=== PATIENT | male | born 1955 | race Caucasian/White ===

== ENCOUNTER → 2023-02-08 14:08 | Outpatient (CLI) | payer MEDICARE, SELFPAY ==
--- NOTE | 2023-02-09 12:45 | DI.NM.S_ITS ---
DATE OF SERVICE: 02/09/2023 Exercise perfusion study INDICATIONS: Exertional chest pain, coronary artery calcification, hypertension and hyperlipidemia. RADIOPHARMACEUTICAL: 27.4 millicurie technetium-99m Myoview IV was injected at rest and 25.5 millicurie technetium-99m Myoview IV was injected at rest. CARDIAC STRESS: The patient underwent exercise perfusion study under the supervision of an attending staff using standard Freddie protocol. The patient walked on Freddie protocol for 8 minutes and 38 seconds, achieved target heart rate 100 percent with maximum heart rate 155 beats per minute. Flat blood pressure response. Maximum blood pressure 132/80. Achieved 10.1 METS of workload. CHAD -10%. In 2 minutes of exercise, patient developed chest discomfort, which has anginal quality. On a scale of 1 to 10, 5 in intensity. It lasted up to 19 minutes in recovery. Baseline rhythm was sinus. During stress, the patient has intermittent PVCs, including short run of nonsustained ventricular tachycardia up to 3 minutes and some ventricular couplets. No sustained ventricular tachycardia. In recovery, the patient developed up to [address] depression in leads V3 to V6, which later on became down- sloping and nonspecific ST depression in inferolateral leads, as well as T-wave inversion. RAW DATA: There is adequate myocardial uptake. GATED STUDY: Stress LV ejection fraction 67%. Inferior wall appears to be hypokinetic. Resting end-diastolic volume 110 mL. TID ratio 0.83, which is within normal limits. Lung/heart ratio 0.33, which is within normal limits. MYOCARDIAL PERFUSION SCAN: Stress supine, resting supine and stress prone images were compared to each other. There is a large severe reversible ischemia of inferior wall extending into the inferolateral wall as well as inferoseptum. Summed stress score 12, Summed resting score 1 and summed difference score -11. CONCLUSION: This is an abnormal myocardial perfusion study consistent with large reversible ischemia of inferior wall extending into the inferolateral as well as inferoseptum, consistent with significant occlusive ostial or proximal right coronary artery disease or dominant ostial circumflex artery disease. The patient has chest pain lasted about 19 minutes. Intermittent nonsustained ventricular tachycardia during exercise. Flat blood pressure response. My midlevel who supervised the stress test told me about this study. I immediately reviewed the study and looked at the EKG and talked to the patient. Shared decision making was done. The patient was sent to [facility] for further evaluation. Informed [place] [facility] physician, Dr. Adair about the abnormal perfusion study. He will benefit with transfer to a facility where he can undergo left heart catheterization in anticipation of revascularization. Patrick Cohn - Ant/kelly doc#: [id number]/job#: [id number] dd: 02/09/2023 10:49:00 dt: 02/09/2023 12:30:00 DICTATING MD/COPIES TO: Jen Hall MD COPIES MNE: SEAN;
== END ==
PROVIDERS: PCP Student in an Organized Health Care Education/Training Program; Referring Provider Student in an Organized Health Care Education/Training Program; Visit Provider Student in an Organized Health Care Education/Training Program
DX: R07.9 Chest pain, unspecified (principal); R94.39 Abnormal result of other cardiovascular function study; I25.10 Atherosclerotic heart disease of native coronary artery without angina pectoris; I10 Essential (primary) hypertension; E78.5 Hyperlipidemia, unspecified
CPT/HCPCS: 78452; 93017; A9502

== ENCOUNTER 2023-02-09 10:44 | Emergency (ER) | payer MEDICARE, SELFPAY ==
[2023-02-09] VITALS (10 sets, daily range): BP systolic 126–170; BP diastolic 69–95; PULSE 61–79; RESP 11–19; TEMP 36.6; O2SAT 97–99; BMI 23.3
--- NOTE | 2023-02-09 10:50 | DI.RAD.S_ITS ---
PROCEDURE: XR CHEST 1V INDICATIONS: chest pain TECHNIQUE: One view of the chest was acquired. COMPARISON: [facility], , CHEST 2 VIEW, 09/28/2012, 1:50. FINDINGS: Surgical changes and devices: None. Lungs and pleura: Lungs are clear. No pleural effusions or pneumothorax. Mediastinum: Mediastinal contours appear normal. Heart size is normal. Bones and chest wall: No suspicious bony lesions. Overlying soft tissues appear unremarkable. IMPRESSION: No evidence acute pulmonary process. Dictated by: Nathan Hastings M.D. on 02/09/2023 at 11:31 Approved by: Nathan Hastings M.D. on 02/09/2023 at 11:31
--- NOTE | 2023-02-09 10:59 | ED.CHESTPAIN ---
HPI - Chest Pain General Chief Complaint: Chest Pain Stated Complaint: Chest Pain Time Seen by Provider: 02/09/23 10:49 Source: patient Mode of arrival: Ambulatory Limitations: no limitations History of Present Illness HPI narrative: Patient is a 67-year-old male. History of hypertension. Greater than 1 decade ago he did have a carotid endarterectomy. This was found after he lost vision in 1 of his eyes. He is not had any issues since then. Has not on any medications because of that. He stated that approximately 6 weeks ago he started to have discomfort specifically with exertion. He was able to go to the gym and do working out it was just when he was walking. He saw his primary doctor. Today was scheduled for an outpatient stress test. I received a call from Cardiology who stated that they received a call from the [employer] performing the exam. Patient was having chest discomfort. Had abnormal findings on the monitoring. He did have a run of nonsustained ventricular tachycardia. The stress test images were read by Cardiology stating that he had reversible inferior wall, inferior lateral wall and inferior septum changes. Concerning for proximal RCA pathology. Patient was instructed to come to the emergency department for further evaluation. Here in the ER patient is not having any chest pain. No shortness of breath. No abdominal pain. No prior history of cardiac issues. Cardiology recommending transfer to facility that has catheterization capability. Related Data Home Medications Medication Instructions Recorded Confirmed ASCORBIC ACID (VITAMIN C) 1,000 mg PO ##0 09/23/12 Fish Oil (#EPA/GLA) 1 sgl PO ##0 09/23/12 [ADRENAL SUPPORT] ##0 09/23/12 [acidophalis] ##0 09/23/12 [b COMPLEX] ##0 09/23/12 [multiple vitamin] ##0 09/23/12 [vitamin d 3] ##0 09/23/12 aspirin 81 mg chewable tablet ##0 09/28/12 Allergies Allergy/AdvReac Type Severity Reaction Status Date / Time No Known Drug Allergies Allergy Verified 02/09/23 10:53 Review of Systems Review of Systems ROS Unobtainable: All systems reviewed & are unremarkable except as noted in HPI and below Patient History Medical History Hypertension Social History Smoking Status: Former smoker Smoking Status: Former smoker alcohol intake frequency: 0-2 drinks per day Substance Use Type: does not use Exam Initial Vital Signs Initial Vital Signs: Vital Signs Temperature 97.9 F 02/09/23 10:49 Pulse Rate 79 02/09/23 10:49 Respiratory Rate 16 02/09/23 10:49 Blood Pressure 133/80 02/09/23 10:49 Pulse Oximetry 99 02/09/23 10:49 Oxygen Delivery Method Room Air 02/09/23 10:49 Const General: cooperative, comfortable and No ill appearing HENMT Head: normal to inspection and normocephalic Resp Effort & Inspection: normal respiratory effort Auscultation: clear to auscultation bilaterally Cardio Rate: regular rate Rhythm: regular rhythm GI Inspection: normal to inspection Skin General: no rashes or lesions noted Neuro General: patient alert, patient awake, patient oriented x3 and moves all extremities Extrem General: normal to inspection and No edema Psych Appearance: grossly normal and well kempt Course Orders Ordered: ED Orders 02/09/23 10:50 XR chest 1V Stat 02/09/23 11:00 Complete Blood Count AUTO DIFF Stat Comprehensive Metabolic Panel Stat Lipase Stat Magnesium Stat NT-proBNP (BNP-Adult 18+) Stat PTT Partial Thromboplastin Aaron Stat Prothrombin Time INR Stat Troponin & CK Cardiac Panel Stat 02/09/23 11:01 EKG-12 Lead Stat 02/09/23 11:26 COVID19 -Nasal RAPID Stat 02/09/23 17:00 PTT Partial Thromboplastin Aaron Q6H Discontinued Medications Aspirin (Aspirin 81 Mg Chew Tab) 324 mg PO NOW ONE Stop: 02/09/23 10:50 Last Admin: 02/09/23 11:11 Dose: 324 mg Documented By: MARI Heparin Sodium (Porcine) (Heparin 5,000 Unit/Ml Vial) 4,000 unit IV NOW ONE Stop: 02/09/23 10:59 Last Admin: 02/09/23 11:12 Dose: 4,000 unit Documented By: MARI Heparin Sodium/Dextrose (Heparin Drip) 25,000 unit in 500 mls @ 18.18 mls/hr IV CONT GERONIMO; Protocol Last Admin: 02/09/23 11:13 Dose: 12 units/kg/hr, 18.18 mls/hr Documented By: MARI Co-signed By: GET Vital Signs Vital signs: Vital Signs - 8 hr 02/09/23 10:49 02/09/23 11:40 02/09/23 12:00 Temperature 97.9 F Pulse Rate 79 66 Respiratory Rate 16 16 Blood Pressure 133/80 134/69 Pulse Oximetry 99 98 Oxygen Delivery Method Room Air 02/09/23 12:00 02/09/23 12:30 02/09/23 12:30 Temperature Pulse Rate 64 64 Respiratory Rate 16 16 Blood Pressure 128/76 Pulse Oximetry 97 97 Oxygen Delivery Method 02/09/23 13:00 02/09/23 13:00 02/09/23 13:30 Temperature Pulse Rate 66 Respiratory Rate 12 Blood Pressure 126/95 H 170/94 H Pulse Oximetry 99 Oxygen Delivery Method 02/09/23 13:30 02/09/23 14:00 02/09/23 14:00 Temperature Pulse Rate 65 63 Respiratory Rate 16 18 Blood Pressure 145/89 H Pulse Oximetry 99 97 Oxygen Delivery Method 02/09/23 14:30 02/09/23 14:31 02/09/23 14:31 Temperature Pulse Rate 62 61 Respiratory Rate 11 L Blood Pressure 143/83 H Pulse Oximetry 99 99 Oxygen Delivery Method 02/09/23 15:00 02/09/23 15:00 Temperature Pulse Rate 63 Respiratory Rate 19 Blood Pressure 158/87 H Pulse Oximetry 98 Oxygen Delivery Method MDM - Chest Pain Medical Records Data Attestation: I reviewed the patient's medical records. Lab Data Attestation: I reviewed the patient's lab results. 02/09/23 11:00 02/09/23 11:00 Labs: Lab Results 02/09/23 02/09/23 02/09/23 Range/Units 11:00 11:00 11:00 WBC 5.2 (4.5-11.0) X10^3/uL RBC 4.90 (4.5-5.9) X10^6/uL Hgb 16.1 (13.5-17.5) g/dL Hct 46.3 (41-53) % MCV 94.6 (80-100) fL MCH 32.9 (26-34) PG MCHC 34.8 (30-36) % RDW 12.5 (11.6-14.8) % Plt Count 173 (150-400) X10^3/uL Neut % (Auto) 61.3 (50-75) % Lymph % (Auto) 29.5 (25-40) % [place] % (Auto) 6.9 (3-14) % Eos % (Auto) 1.2 L (2-4) % Baso % (Auto) 1.1 (0-2) % Neut # (Auto) 3200 (8183-6937) /uL Lymph # (Auto) 1500 (5929-0842) /uL [place] # (Auto) 400 (0-900) /uL Eos # (Auto) 100 (0-450) /uL Baso # (Auto) 100 (0-100) /uL PT 12.3 (10.1-12.7) SECONDS INR 1.1 (0.9-1.3) APTT 36 (26-36) SECONDS Sodium 137 (137-145) mmol/L Potassium 3.8 (3.4-5.1) mmol/L Chloride 101 (98-107) mmol/L Carbon Dioxide 30 (22-32) mmol/L BUN 26 H (9-20) mg/dL Creatinine 0.83 (0.66-1.25) mg/dL Estimated GFR > 60 (>60) mL/min BUN/Creatinine Ratio 31.3 H (6-22) Glucose 117 H (80-110) mg/dL Calcium 9.5 (8.4-10.2) mg/dL Magnesium 1.9 (1.6-2.3) mg/dL Total Bilirubin 0.6 (0.2-1.3) mg/dL AST 25 (17-59) IU/L ALT 22 (<50) IU/L Alkaline Phosphatase 70 (38-126) U/L Total Creatine Kinase 44 L (55-170) U/L CK-MB (CK-2) TNP CK-MB (CK-2) Rel Index TNP Troponin I 0.031 (0.01-0.034) ng/mL NT-Pro-B Natriuret Pep 14 (<125) pg/mL Total Protein 7.3 (6.3-8.2) g/dL Albumin 4.1 (3.5-5.0) g/dL Globulin 3.2 (1.7-4.1) g/dL Albumin/Globulin Ratio 1.3 (1.0-2.8) Lipase 105 (23-300) U/L SARS-CoV-2 (PCR) (Negative) 02/09/23 Range/Units 11:26 WBC (4.5-11.0) X10^3/uL RBC (4.5-5.9) X10^6/uL Hgb (13.5-17.5) g/dL Hct (41-53) % MCV (80-100) fL MCH (26-34) PG MCHC (30-36) % RDW (11.6-14.8) % Plt Count (150-400) X10^3/uL Neut % (Auto) (50-75) % Lymph % (Auto) (25-40) % [place] % (Auto) (3-14) % Eos % (Auto) (2-4) % Baso % (Auto) (0-2) % Neut # (Auto) (7031-0389) /uL Lymph # (Auto) (4067-4116) /uL [place] # (Auto) (0-900) /uL Eos # (Auto) (0-450) /uL Baso # (Auto) (0-100) /uL PT (10.1-12.7) SECONDS INR (0.9-1.3) APTT (26-36) SECONDS Sodium (137-145) mmol/L Potassium (3.4-5.1) mmol/L Chloride (98-107) mmol/L Carbon Dioxide (22-32) mmol/L BUN (9-20) mg/dL Creatinine (0.66-1.25) mg/dL Estimated GFR (>60) mL/min BUN/Creatinine Ratio (6-22) Glucose (80-110) mg/dL Calcium (8.4-10.2) mg/dL Magnesium (1.6-2.3) mg/dL Total Bilirubin (0.2-1.3) mg/dL AST (17-59) IU/L ALT (<50) IU/L Alkaline Phosphatase (38-126) U/L Total Creatine Kinase (55-170) U/L CK-MB (CK-2) CK-MB (CK-2) Rel Index Troponin I (0.01-0.034) ng/mL NT-Pro-B Natriuret Pep (<125) pg/mL Total Protein (6.3-8.2) g/dL Albumin (3.5-5.0) g/dL Globulin (1.7-4.1) g/dL Albumin/Globulin Ratio (1.0-2.8) Lipase (23-300) U/L SARS-CoV-2 (PCR) Negative (Negative) Imaging Data Outpatient stress test: Radiologist's Impression: DATE OF SERVICE:? 02/09/2023 ? Exercise perfusion study ? INDICATIONS:? Exertional chest pain, coronary artery calcification, hypertension and hyperlipidemia. ? RADIOPHARMACEUTICAL:? 27.4 millicurie technetium-99m Myoview IV was injected at rest and 25.5 millicurie technetium-99m Myoview IV was injected at rest. ? CARDIAC STRESS:? The patient underwent exercise perfusion study under the supervision of an attending staff using standard Freddie protocol.? The patient walked on Freddie protocol for 8 minutes and 38 seconds, achieved target heart rate 100 percent with maximum heart rate 155 beats per minute.? Flat blood pressure response.? Maximum blood pressure 132/80.? Achieved 10.1 METS of workload.? CHAD -10%. In 2 minutes of exercise, patient developed chest discomfort, which has anginal quality.? On a scale of 1 to 10, 5 in intensity. It lasted up to 19 minutes in recovery.? Baseline rhythm was sinus.? During stress, the patient has intermittent PVCs, including short run of nonsustained ventricular tachycardia up to 3 minutes and some ventricular couplets.? No sustained ventricular tachycardia.? In recovery, the patient developed up to [address] depression in leads V3 to V6, which later on became down- sloping and nonspecific ST depression in inferolateral leads, as well as T-wave inversion. ? RAW DATA:? There is adequate myocardial uptake. ? GATED STUDY:? Stress LV ejection fraction 67%. Inferior wall appears to be hypokinetic.? Resting end-diastolic volume 110 mL.? TID ratio 0.83, which is within normal limits.? Lung/heart ratio 0.33, which is within normal limits. ? MYOCARDIAL PERFUSION SCAN:? Stress supine, resting supine and stress prone images were compared to each other.? There is a large severe reversible ischemia of inferior wall extending into the inferolateral wall as well as inferoseptum. Summed stress score 12, Summed resting score 1 and summed difference score -11. ? CONCLUSION:? This is an abnormal myocardial perfusion study consistent with large reversible ischemia of inferior wall extending into the inferolateral as well as inferoseptum, consistent with significant occlusive ostial or proximal right coronary artery disease or dominant ostial circumflex artery disease.? The patient has chest pain lasted about 19 minutes.? Intermittent nonsustained ventricular tachycardia during exercise.? Flat blood pressure response. ? My midlevel who supervised the stress test told me about this study.? I immediately reviewed the study and looked at the EKG and talked to the patient. Shared decision making was done.? The patient was sent to [facility] for further evaluation.? Informed [place] [facility] physician, about the abnormal perfusion study.? He will benefit with transfer to a facility where he can undergo left heart catheterization in anticipation of revascularization. Chest x-ray: Radiologist's Impression: PROCEDURE:? XR CHEST 1V ? INDICATIONS:? chest pain ? TECHNIQUE:? One view of the chest was acquired.? ? COMPARISON:? [facility], , CHEST 2 VIEW, 09/28/2012, 1:50. ? FINDINGS:? ? Surgical changes and devices:? None.? ? Lungs and pleura:? Lungs are clear.? No pleural effusions or pneumothorax.? ? Mediastinum:? Mediastinal contours appear normal.? Heart size is normal.? ? Bones and chest wall:? No suspicious bony lesions.? Overlying soft tissues appear unremarkable.? ? IMPRESSION:? No evidence acute pulmonary process. ECG Data Attestation: I personally reviewed and interpreted this ECG as follows: Interpretation: Sinus rhythm Ventricular rate of 76 Normal axis Normal QRS Normal QTC No ST T wave changes MDM Narrative Medical decision making narrative: I received a call from cardiology stating that the patient had a significantly abnormal stress test. They recommended given the patient aspirin and starting on heparin and transferring facility that has catheterization capability. The stress test report that is included in this note is from that outpatient visit. It is for reference purposes only and was not ordered by myself nor during this ED visit. Patient is currently asymptomatic. Not hypotensive. Not tachycardic. Labs unremarkable. Patient was started on heparin and given aspirin. I did discuss the case with Dr. Torres with cardiology at [facility] who agrees to see the patient upon transfer. I then discussed the case with Dr. Goodman hospitalist at [facility] who accepts the patient in transfer. The patient is stable for transport. Discharge Plan Departure Patient Disposition: [facility] Clinical Impression: Unstable angina pectoris Prescriptions: No Action Fish Oil (#EPA/GLA) 1 sgl PO Qty: 0 [ADRENAL SUPPORT] Qty: 0 [b COMPLEX] Qty: 0 ASCORBIC ACID (VITAMIN C) 1,000 mg PO Qty: 0 [vitamin d 3] Qty: 0 [acidophalis] Qty: 0 [multiple vitamin] Qty: 0 aspirin 81 MG tablet,chewable Qty: 0 Referrals: Wing Lewis [Primary Care Provider] -
[2023-02-09] MEDS: ASPIRIN 81 MG CHEW TAB 324 MG PO (11:11)
[2023-02-09] MEDS: HEPARIN 5,000 UNIT/ML VIAL 4000 UNIT IV (11:12)
[2023-02-09] MEDS: HEPARIN DRIP 25,000 UNIT/500 ML IV.SOLN 18.18 UNIT IV (11:13)
[2023-02-09 11:25] LABS: Add Manual Diff / Slide Review NO; Basophils Absolute Auto 100 /uL (0-100); Basophils Percent Auto 1.1 % (0-2); Eosinophils Absolute Auto 100 /uL (0-450); Eosinophils Percent Auto 1.2 % (2-4); Hematocrit 46.3 % (41-53); Hemoglobin 16.1 g/dL (13.5-17.5); Lymphocytes Absolute Auto 1500 /uL (1100-4500); Lymphocytes Percent Auto 29.5 % (25-40); Mean Corpuscular HGB Conc 34.8 % (30-36); Mean Corpuscular Hemoglobin 32.9 PG (26-34); Mean Corpuscular Volume 94.6 fL (80-100); Monocytes Absolute Auto 400 /uL (0-900); Monocytes Percent Auto 6.9 % (3-14); Neutrophils Absolute Auto 3200 /uL (1500-7000); Neutrophils Percent Auto 61.3 % (50-75); Platelet Count 173 X10^3/uL (150-400); Red Cell Distribution Width 12.5 % (11.6-14.8); White Blood Cell Count 5.2 X10^3/uL (4.5-11.0)
[2023-02-09 11:35] LABS: INR 1.1 (0.9-1.3); Prothrombin Time 12.3 SECONDS (10.1-12.7)
[2023-02-09 11:38] LABS: PTT Partial Thromboplastin Tim 36 SECONDS (26-36)
[2023-02-09 11:41] LABS: Alanine Aminotransferase 22 IU/L (<50); Albumin 4.1 g/dL (3.5-5.0); Albumin Globulin Ratio 1.3 (1.0-2.8); Alkaline Phosphatase 70 U/L (38-126); Aspartate Aminotransferase 25 IU/L (17-59); BUN Creatinine Ratio 31.3 (6-22); Bilirubin Total 0.6 mg/dL (0.2-1.3); Blood Urea Nitrogen 26 mg/dL (9-20); Calcium 9.5 mg/dL (8.4-10.2); Carbon Dioxide 30 mmol/L (22-32); Chloride 101 mmol/L (98-107); Creatine Kinase 44 U/L (55-170); Estimated Glomerular Filt Rate > 60 mL/min (>60); Globulin 3.2 g/dL (1.7-4.1); Glucose 117 mg/dL (80-110); HEMOLYSIS 16 (0-50); Lipase 105 U/L (23-300); Magnesium 1.9 mg/dL (1.6-2.3); Potassium 3.8 mmol/L (3.4-5.1); Sodium 137 mmol/L (137-145); Total Protein 7.3 g/dL (6.3-8.2)
[2023-02-09 11:52] LABS: NT-proBNP (BNP-Adult 18+) 14 pg/mL (<125); Troponin I 0.031 ng/mL (0.01-0.034)
[2023-02-09 11:56] LABS: COVID19 -Nasal RAPID Negative (Negative)
== END 2023-02-09 15:32 | disposition short-term general hospital (02) ==
PROVIDERS: Emergency Provider Emergency Medicine; PCP Student in an Organized Health Care Education/Training Program
DX: I20.0 Unstable angina (principal); Z20.822 Contact with and (suspected) exposure to COVID-19; Z87.891 Personal history of nicotine dependence
CPT/HCPCS: 36415; 71045; 80053; 82550; 83690; 83735; 83880; 84484; 85025; 85610; 85730; 87635; 93005; 93010; 96374; 99284; C9803; J1644